=== PATIENT | female | born 1995 | race Caucasian/White ===

== ENCOUNTER → 2022-12-24 10:48 | Outpatient (CLI) | payer OTHER, SELFPAY ==
[2022-12-24 12:15] LABS: Influenza A - CEPHEID Flu A NEGATIVE (NEGATIVE); Influenza B - CEPHEID Flu B NEGATIVE (NEGATIVE); Respiratory Syncytial Virus Negative (Negative)
[2022-12-24 13:13] LABS: COVID-19 CEPHEID 4-PLEX PCR POSITIVE (Negative)
== END ==
PROVIDERS: Visit Provider Physician Assistant
DX: J02.9 Acute pharyngitis, unspecified (principal)
CPT/HCPCS: 0241U